=== PATIENT | male | born 1955 | race Caucasian/White ===

== ENCOUNTER 2017-02-25 07:56 | Inpatient (IN) | payer OTHER ==
[~2017-02-25] VITALS: Ht 167.6 cm; Wt 155.1 kg
[~2017-02-25 07:56] MED LIST: A + D FIRST A42.5 GM TP; ALDACTONE25 MG PO; ANASEPT TP; BUMETANIDE0.25 MG/1 PO; BUMEX; CELEXA20 MG PO; COL-RITE50 MG PO; COREG12.5 MG PO; COUMADIN 1MG TAB1 M1 PO; COUMADIN 5 MG TA5 M1 PO; COZAAR 50 MG TA50 M2 PO; CRESTOR10 MG PO; D-20002000 UNIT PO; DIOVAN 80 MG TA80 M1 PO; DOXYCYCLINE 10100 MG PO; FEOSOL325 M1 PO; HYDROXYZINE HCL25 M1 PO; KEFLEX500 MG PO; LASIX 80 MG TAB80 MG PO; LEVEMIR SUBQ; LEVOTHYROXINE0.05 MG PO; MENTAX1 TUBE TP; MINOCIN100 MG PO; MIRALAX17 GM PO; NOVOLOG100 UNIT/1 SUBQ; NYATA15 GM TP; OMEPRAZOLE20 M2 PO; PERCOCET 10-321 EACH PO; PERCOCET PO; POTASSIUM20 PO; PREDNISONE 20 M20 MG PO; SANTYL OINTMENT30 G1 TP; TRIAMCINOLONE A80 G2 TOP; XALATAN2.5 ML OPHTHALMIC; [UNRECOGNIZED DRUG - OTHER] TP
[2017-02-25 08:06] VITALS: BP 112/71
[2017-02-25 08:30] LABS: ABSOLUTE EOSINOPHILS 0.1 thou/uL (0.0-0.7); ABSOLUTE LYMPHOCYTES 1.2 thou/uL (0.8-5.3); ABSOLUTE MONOCYTES 0.6 thou/uL (0.0-1.2); ABSOLUTE NEUTROPHILS 5.8 thou/uL (1.6-8.1); BASOPHILS 0.2 %; EOSINOPHILS 1.7 %; HEMATOCRIT 38.2 % (42.0-52.0); LYMPHOCYTES 15.7 %; MCHC 31.5 g/dL (28.0-37.0); MCV 79.6 fL (80.0-100.0); MONOCYTES 7.7 %; MPV 8.5 fl. (7.2-11.1); NUCLEATED RBCS 0 /100WBC; PLATELET COUNT* 257 thou/uL (150-400); POLYS 74.7 %; WBC 7.8 thou/uL (4.0-11.0)
[2017-02-25 08:42] LABS: INR 1.5; PROTIME 14.4 Seconds (9.20-11.50)
[2017-02-25 08:44] LABS: ANION GAP 8 mmol/L (7-16); BUN 62 mg/dL (7-18); CALCIUM 8.6 mg/dL (8.5-10.1); CHLORIDE 99 mmol/L (98-107); CO2 27 mmol/L (21-32); CREATININE 1.9 mg/dL (0.6-1.3); GLUCOSE 292 mg/dL (70-99); POTASSIUM 4.2 mmol/L (3.5-5.1); SODIUM 134 mmol/L (136-145)
[2017-02-25 08:55] LABS: ALBUMIN 2.4 g/dL (3.4-5.0); ALKALINE PHOSPHATASE 418 U/L (46-116); CK-MB MASS 4.6 ng/mL (<0.5-3.6); LIPASE 143 U/L (73-393); MAGNESIUM 1.5 mg/dL (1.8-2.4); NT-PRO BRAIN NAT PEPTIDE 9094 pg/mL (<300); SGOT 25 U/L (15-37); SGPT 22 U/L (30-65); TOTAL PROTEIN 7.6 g/dL (6.4-8.2); TROPONIN-I LEVEL <0.06 ng/mL (<0.06)
[2017-02-25 09:04] LABS: ANISOCYTOSIS 2+; PLATELET ESTIMATE ADEQUATE; POLYCHROMASIA 1+
[2017-02-25] MEDS ORDERED: VICTOZA0.6 MG/0.1 SUBQ (09:44)
--- NOTE | 2017-02-25 11:29 | EKG ---
[place] [address] ELECTROCARDIOGRAM REPORT Name: PAT JONES Room: [facility]#: [id number] Admission: 02/25/17 Attend Phys: Discharge: Date of : 53 Report #: [id number] THIS REPORT FOR: //name// [facility] ED Test Date: 2017-02-25 Test Time: 08:09:59 Pat Name: PAT JONES Department: Room: Gender: M Deckhand: Opal HARVEY : 1955 Requested By: Aditya Loaiza Order Number: [id number] MD: Kailash Osborne Measurements Intervals [place] Rate: 80 P: [place]: QRS: 6 QRSD: 117 T: 61 QT: 435 QTc: 502 Interpretive Statements Atrial fibrillation Nonspecific intraventricular conduction delay Low voltage, extremity leads nonspecific st changes Compared to ECG 03/01/2016 00:46:14 Prolonged QT interval no longer present Electronically Signed On 02-25-2017 11:29:25 SEWING MACHINE OPERATOR PLASTIC ZIPPER by Kailash Osborne [email or web address] <ELECTRONICALLY SIGNED> By: Kailash Osborne MD, [facility] 02/25/17 1129 8 8 Kailash Osborne MD, [facility] /EPI
--- NOTE | 2017-02-25 16:38 | EKG ---
[place] [address] ELECTROCARDIOGRAM REPORT Name: PAT JONES Room: [place] [address] ADM IN .R.#: [id number] Admission: 02/25/17 Attend Phys: Marino Vargas MD Discharge: Date of : 53 Report #: [id number] THIS REPORT FOR: //name// [facility] ED Test Date: 2017-02-25 Test Time: 11:10:07 Pat Name: PAT JONES Department: Room: [facility] Gender: M Brazing Machine Operator: Opal HARVEY : 1955 Requested By: Aditya Loaiza Order Number: [id number] MD: Otf Waters Measurements Intervals [place] Rate: 103 P: MD: QRS: 33 QRSD: 109 T: -5 QT: 375 QTc: 491 Interpretive Statements Atrial fibrillation Lateral infarct, acute (LAD), possible Compared to ECG 02/25/2017 08:09:59 Myocardial infarct finding now present Intraventricular conduction delay no longer present ST (T wave) deviation no longer present Electronically Signed On 02-25-2017 16:37:50 COUPON REDEMPTION CLERK by Otf Waters [email or web address] <ELECTRONICALLY SIGNED> By: Otf Waters MD, FACC 02/25/17 1637 1110 1110 Otf Waters MD, FAC /EPI
[2017-02-25 17:04] LABS: URINE BILIRUBIN NEGATIVE (Negative); URINE BLOOD TRACE (Negative); URINE CLARITY CLEAR; URINE COLOR YELLOW; URINE GLUCOSE-RANDOM 1+ (Negative); URINE KETONES TRACE (Negative); URINE LEUKOCYTES-REFLEX TRACE (Negative); URINE NITRITE-REFLEX NEGATIVE (Negative); URINE PROTEIN 2+ (Negative)
[2017-02-25 17:13] LABS: AMP/METHAMP Negative (Negative); BARBITURATES Negative (Negative); BENZODIAZEPINES Negative (Negative); COCAINE Negative (Negative); METHADONE Negative (Negative); OPIATES Negative (Negative); PCP Negative (Negative); THC Negative (Negative)
[2017-02-25 17:23] LABS: BACTERIA-REFLEX 1-9 Few /HPF (None Seen); HYALINE CASTS 4-10 Moderate /LPF (None Seen); URINE WBC-REFLEX 6-15 Few /HPF (0-5)
[2017-02-25 17:24] LABS: CRYSTALS None Seen /LPF (None Seen); MUCUS None Seen strn/LPF (None Seen); SQUAMOUS 0-3 Few /LPF (0-3); URINE RBC 0-2 Rare /HPF (0-2); WBC CLUMPS Few (None Seen)
[2017-02-25 17:25] VITALS: BP 130/89
[2017-02-25 17:50] VITALS: BP 130/89
[2017-02-25] MEDS ORDERED: DOXYCYCLINE 10100 MG PO (18:15)
[2017-02-25] MEDS ORDERED: MUCINEX1200 MG PO (18:17)
[2017-02-25] MEDS ORDERED: ALDACTONE25 MG PO (18:17)
[2017-02-25] MEDS ORDERED: IRON325 PO (18:17)
[2017-02-25] MEDS ORDERED: COLACE100 MG PO (18:18)
[2017-02-25] MEDS ORDERED: MAGOX 400400 MG PO (18:18)
[2017-02-25] MEDS ORDERED: FISH OIL 1,0001 EAC1 PO (18:19)
[2017-02-25] MEDS ORDERED: FOLIC ACID1 MG PO (18:19)
--- NOTE | 2017-02-25 19:00 | NUR ---
PT ARRIVED TO ROOM 1715, ORIENTED TO ROOM AND STAFF. PT IS ANXIOUS, A/O X4, HAS WOUNDS TO CHEST, ARMS AND REPORTS WOUNDS TO RIGHT LE [facility] DID NOT UNWRAP THE WOUNDS TO ASSES, PT STATES THEY CHANGE THE DRESSINGS DAILY. WILL CONSULT WOUND CARE. PT IS HARD TO ASSES, REQUIRES EXTRA TIME, MAX ASSIST, VSS, ACCU CHECK, REVIEWED HOME MEDS WITH PT. ADMISSION HX AND ASSESMENT DONE. PT VOMITING AT APPROX 1830, ZOFRAN GIVEN. REVIEWED PLAN OF CARE WITH PT. FALL PRECATUIONS IN PLACE, TEA LIGHT IN REACH. WILL CONTINUE TO MONITOR.
[2017-02-26] VITALS (14 sets, daily range): BP systolic 107–155; BP diastolic 72–101
[2017-02-26 01:09] LABS: ABSOLUTE BASOPHILS 0.1 thou/uL (0.0-0.2); ABSOLUTE LYMPHOCYTES 1.1 thou/uL (0.8-5.3); ABSOLUTE MONOCYTES 0.7 thou/uL (0.0-1.2); ABSOLUTE NEUTROPHILS 7.1 thou/uL (1.6-8.1); BASOPHILS 1.2 %; EOSINOPHILS 0.5 %; HEMATOCRIT 39.2 % (42.0-52.0); HEMOGLOBIN 12.1 gm/dL (14.0-18.0); LYMPHOCYTES 12.3 %; MCH 24.5 pg (26.0-34.0); MCHC 30.9 g/dL (28.0-37.0); MCV 79.2 fL (80.0-100.0); MONOCYTES 8.1 %; MPV 8.2 fl. (7.2-11.1); NUCLEATED RBCS 0 /100WBC; PLATELET COUNT* 270 thou/uL (150-400); POLYS 77.9 %; RBC 4.94 mil/uL (4.50-6.00); RDW-CV 21.3 % (10.5-14.5); WBC 9.1 thou/uL (4.0-11.0)
[2017-02-26 01:17] LABS: CREATININE 1.9 mg/dL (0.6-1.3); POTASSIUM 4.7 mmol/L (3.5-5.1)
[2017-02-26 01:22] LABS: INR 1.6; PROTIME 15.3 Seconds (9.20-11.50)
[2017-02-26 01:36] LABS: ANISOCYTOSIS 2+; HYPOCHROMASIA 1+; POIKILOCYTOSIS 1+
[2017-02-26 01:37] LABS: PLATELET ESTIMATE ADEQUATE
--- NOTE | 2017-02-26 07:36 | NUR ---
ASSUMED CARE OF PT AT 1930, NURSING ASSESSMENT COMPLETED AT START OF SHIFT, PT C/O RLE PAIN AT START OF SHIFT, DR. ROBERTS NOTIFIED AND NEW ORDERS RECEIVED. CRITICAL HIGH TROPONIN LEVEL RECEIVED THIS SHIFT, DR. KAMINSKI NOTIFIED AND NEW ORDERS RECEIVED. PT NPO FOR CARDIOLOGY CONSULT. Q2H TURNS COMPLETED, REFUSED FOR THIS NURSE TO REMOVE SLEEVES FROM BLE AND UNABLE TO TAKE PICTURES FOR PT CHART. CALL LIGHT REMAINS WITHIN REACH. HEPARIN DRIP INFUSING AT 12 ML/HR.
--- NOTE | 2017-02-26 08:30 | NUR ---
ASSUMED CARE OF PT AT 0730. PT LYING IN BED, CYANOSIS NOTED TO LIPS. 02 SAT IN THE 70'S ON 2L NC. PT OXYGEN INCREASED TO 5L NC SAT 93%. PT DENIES ANY SHORTNESS OF BREATH. PT A&0X4, IRRITABLE AND AGITATED, STATING HE JUST WANTS TO BE LEFT ALONE AND GIVEN FOOD. PT NPO AT THIS TIME FOR CARDIOLOGY CONSULT. PT TRACING AFIB ON THE HUMAN RESOURCES RECEPTIONIST. RATE IN THE 110'S. PT IN CONTACT ISOLATION FOR HISTORY MRSA. PT VOIDS PER URINAL. RIGHT BKA AND LEFT AKA NOTED. PT REFUSES TO LET NURSING TAKE DRESSING AND BANDAGE OFF OF RIGHT BKA. EDUCATION GIVEN. PLAN IS TO LET PT REST AND ATTEMPT AGAIN THIS AFTERNOON. PT TROPONINS ELEVATED >200. HEPARIN GTT INFUSING AT THIS TIME AT 12 ML/HR. AWAITING RELEASE OF INFORMATION CLERK. SCABS NOTED TO PT CHEST. RASH NOTED TO RIGHT BUTTOCKS. REFER TO PICTURES IN CHART UNDER PROGRESS NOTES. AWAITING BARIATRIC BED DELIVERY AT THIS TIME. PT STATES HE HAS DULL PAIN TO HIS CHEST, MUCH BETTER THAN YESTERDAY AND DILAUDID GIVEN THIS AM HELPED WITH PAIN. PLAN FOR PT IS CARDIOLOGY CONSULT, MONITOR TROPONINS AND OXYGENATION AND PAIN MGMT, AM ASSESSMENT CHARTED. MEDICATIONS PER APR. PT REPOSITIONED EVERY 2 HOURS FOR COMFORT. HOURLY ROUNDING OBSERVED. BED IN LOW POSITION. BED ALARM IN PLACE. FALL PRECAUTIONS IN PLACE. CALL LIGHT WITHIN REACH. WILL CONTINUE PLAN OF CARE.
--- NOTE | 2017-02-26 11:43 | NUR ---
CARDIOLOGY HERE TO SEE PT. PLAN IS TO TREAT MEDICALLY AND NOT CATH PT IS NOT A GOOD CANDIDATE. ORDERS RECEIVED FOR ECHO AND IV DIGOXIN PER DR HOPSON. REFER TO EMAR. HEMOPTYSIS NOTED. IV HEPARIN DISCONTINUED. DR MCLAUGHLIN HERE TO SEE PT. ORDERS RECEIVED FOR STAT CXR, STAT BNP, LACTIC AND ABG'S. AWAITING RESULTS AT THIS TIME. BLOOD CULTURES ALSO ORDERED. PULMONARY CONSULT IN PLACE FOR HEMOPTYSIS AND RESPIRATORY FAILURE. INFECTIOUS DISEASE CONSULT IN PLACE FOR ANTIBIOTICS. PT CURRENTLY ON 8L NC SAT 95%. PT CONTINUES TO DENY ANY SHORTNESS OF BREATH. WILL CONTINUE TO MONITOR CLOSELY.
[2017-02-26 12:21] LABS: HCO3 22.9 mmol/L (22.0-26.0); PCO2 39.7 mmHg (35.0-45.0); pH 7.379 (7.340-7.450)
[2017-02-26 12:22] LABS: PO2 53.4 mmHg (75.0-100.0)
--- NOTE | 2017-02-26 14:39 | NUR ---
ORDER RECEIVED FOR MRSA SWAB. MRSA OBTAINED AND SENT TO LAB. AWAITING RESULTS. ABG'S, LACTIC AND BNP RESULTS BACK. REFER TO EMAR. RESULTS GIVEN TO DR MCLAUGHLIN. ORDERS RECEIVED FOR PT TO TRANSFER TO ICU BED 8. REPORT CALLED TO DAYRON BISWAS. RT PLACED BIPAP ON PT AND PT REFUSED TO KEEP ON. EDUCATION GIVEN. PT TRANSFERRED TO ICU WITH ALL BELONGINGS AND CHART VIA BARIATRIC BED.
--- NOTE | 2017-02-26 15:30 | NUR ---
Pt out of room when CM went to assess, will f/u later
--- NOTE | 2017-02-26 15:45 | NUR ---
1435 PATIENT RECEIVED PER BED FROM TELEMETRY. SEE ASSESSMENT. PT ON 6LPM HIGH FLOW CANNULA. LIANG CATHETER PLACED PER ORDER DR MCLAUGHLIN. RIGHT AKA STUMP WOUND DRESSING REMOVED AND PHOTOGRAPHED AND VIEWED BY IJEOMA. SECOND IV PLACED. PT IS CHRONIC ATRIAL FIB. HAS NEUROPATHY BUT DENIES CHEST PAIN.
--- NOTE | 2017-02-26 16:17 | 2DMMODE ---
[place] [address] 2 D/M-MODE ECHOCARDIOGRAM Name: PAT JONES Room: [address] IN [facility]#: [id number] Admission: 02/25/17 Attend Phys: Marino Vargas, Discharge: Date of : 53 Date of Service: 02/26/17 1617 Report #: [id number] THIS REPORT FOR: //name// APPROVED REPORT Study performed: 02/26/2017 12:30:33 EXAM: Comprehensive 2D, Doppler, and color-flow Echocardiogram Patient Location: In-Patient Room #: 214 Status: routine BSA: 2.51 BP: 111/73 mmHg Other Information Study Quality: Technically Limited Technically limited study due to uncooperative patient, body habitus, inability to position patient. Indications Chest Pain 2D Dimensions LVEF(%): 22.80 (>50%) IVSd: 18.28 (7-11mm) LVOT Diam: 20.15 (18-24mm) LVDd: 57.66 mm PWd: 14.36 (7-11mm) Ascending Ao: 34.89 (22-36mm) LVDs: 51.54 (25-40mm) Aortic Root: 32.92 mm Winter's LVEF: 22.80 % Pulmonary Valve PV Peak James.: 0.70 m/s PV Peak Gr.: 1.99 mmHg Tricuspid Valve TR Peak Gr.: 13.00 mmHg Left Ventricle Left ventricle is moderately dilated. Mild to moderate concentric left ventricular hypertrophy. Left ventricular ejection fraction is severely decreased. LVEF is 10-15%. Right Ventricle Right ventricle [place] [address] 2 D/M-MODE ECHOCARDIOGRAM Name: ROBERTPAT JULIO CÉSAR Room: [address] IN ..#: [id number] Admission: 02/25/17 Attend Phys: Marino Vargas, Discharge: Date of : 53 Date of Service: 02/26/171616 Report #: [id number] Atria Left atrium is moderately dilated. Aortic Valve Mild aortic valve sclerosis. Mitral Valve There is mitral annular calcification. <Conclusion> Left ventricle is moderately dilated. Mild to moderate concentric left ventricular hypertrophy. Left ventricular ejection fraction is severely decreased. LVEF is 10-15%. Mild aortic valve sclerosis. There is mitral annular calcification. Right ventricle is moderately dilated. Left atrium is moderately dilated. <ELECTRONICALLY SIGNED> By: Otf Waters MD, [facility] 02/26/171616 16 1617 Otf Waters MD, FACC /INF
--- NOTE | 2017-02-26 16:36 | EKG ---
[place] [address] ELECTROCARDIOGRAM REPORT Name: PAT JONES Room: [address] ADM IN M.R.#: [id number] Admission: 02/25/17 Attend Phys: Marino Vargas MD Discharge: Date of : 53 Report #: [id number] THIS REPORT FOR: //name// [facility] Test Date: 2017-02-25 Test Time: 21:09:43 Pat Name: PAT JONES Department: Room: [facility] Gender: M Luggage Attendant: MEGAN : 1955 Requested By: Marino Vargas Order Number: [id number] Daysi MD: Otf Waters Measurements Intervals [place] Rate: 111 P: SC: QRS: 147 QRSD: 103 T: -23 QT: 351 QTc: 477 Interpretive Statements Atrial fibrillation Ventricular premature complex Anterior infarct, old Borderline ST depression, anterolateral leads Baseline wander in lead(s) V1 Compared to ECG 02/25/2017 11:10:07 Ventricular premature complex(es) now present ST (T wave) deviation now present Myocardial infarct finding still present Electronically Signed On 02-26-2017 16:36:22 MANUFACTURER'S SERVICE REPRESENTATIVE by Otf Waters [email or web address] <ELECTRONICALLY SIGNED> By: Otf Waters MD, FACC 02/26/17 1636 08 08 Otf Waters MD, [facility] /EPI
--- NOTE | 2017-02-26 16:37 | EKG ---
[place] [address] ELECTROCARDIOGRAM REPORT Name: PAT JONES Room: [address] ADM IN M.R.#: [id number] Admission: 02/25/17 Attend Phys: Marino Vargas MD Discharge: Date of : 53 Report #: [id number] THIS REPORT FOR: //name// [facility] Test Date: 2017-02-26 Test Time: 08:31:24 Pat Name: PAT JONES Department: Room: [facility] Gender: M Commercial Real Estate Associate: : 1955 Requested By: Marino Vargas Order Number: [id number] Reading MD: Otf Waters Measurements Intervals [place] Rate: 115 P: [place]: QRS: 185 QRSD: 100 T: 34 QT: 352 QTc: 487 Interpretive Statements Atrial fibrillation Anterior infarct, old Borderline ST elevation, lateral leads Baseline wander in lead(s) II,III,aVF,V1,V3,V4,V5,V6 Compared to ECG 02/25/2017 11:10:07 ST (T wave) deviation now present Myocardial infarct finding still present Electronically Signed On 02-26-2017 16:37:31 LEAD SHOP OPERATOR by Otf Waters [email or web address] <ELECTRONICALLY SIGNED> By: Otf Waters MD, FACC 02/26/17 1637 0 0 Otf Waters MD, FAC /EPI
--- NOTE | 2017-02-26 17:20 | CON ---
[address] [address] CONSULTATION Name: PAT JONES Room: [address] ADM IN M.R.#: [id number] Admission: 02/25/17 Attend Phys: Marino Vargas MD Discharge: Date of : 53 Report #: [id number] THIS REPORT FOR: //name// CC: Marino Vargas FAM unknown [facility] DATE OF SERVICE: 02/25/2017 TYPE OF REPORT: Cardiology consultation. HISTORY OF PRESENT ILLNESS: The patient is a 61-year-old white male who I was asked to see in the hospital today after he complained of chest pain. The patient has had several hospitalizations here at [facility] in the past. However, he is primarily cared for at the [facility]. He has had previous right jvozg-jra-ksew amputation as well as a left pglki-qar-chld amputation apparently because of an accident in the past. He denies a history of PAD. He does have diabetes and apparently at one point had an ulcer on his foot that would not heal. He has a history of chronic edema. Echocardiogram a year ago showed ejection fraction of only 25% with dilated right ventricle. The patient states he has been diagnosed with a cardiomyopathy in the past. He is not very active because of previous bilateral amputations as well as obesity. He is 5 feet 8 inches and weighs 230 pounds. He was last admitted here to [facility] in February 2016 with congestive heart failure. He does have a history of atrial fibrillation. The patient states he was admitted about a month ago to the [facility] with congestive heart failure. He was doing well to this morning. He bent over to rock picker an object. He then felt a sharp pain in his chest and became diaphoretic. He called an ambulance. He was brought here to [facility]. I was asked to see him for further evaluation and treatment. He denied the pain radiating to his arm or jaw. No associated shortness of breath or nausea. He had no belch with the episode. He has had no recent blood in the stool. He denies any significant fever or cough. PAST MEDICAL HISTORY: Otherwise significant for diabetes. He has a history of previous amputation. MEDICATIONS: On admission included insulin, warfarin, Crestor, Bumex, Celexa, carvedilol, potassium and Victoza. ALLERGIES: He has intolerance to LISINOPRIL, MORPHINE and SULFA. FAMILY HISTORY: Negative for heart disease. SOCIAL HISTORY: He is . He and his live in [place]. 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 No smoking[place] [address] CONSULTATION Name: PAT JONES Room: [address] IN M.R.#: [id number] Admission: 02/25/17 Attend Phys: Marino Vargas MD Discharge: Date of : 53 Report #: [id number] REVIEW OF SYSTEMS: He states he had a recent upper endoscopy that showed Olsen's esophagus. He has had a recent colonoscopy, showed polyps. No history of stroke. He does have a history of sleep apnea. No history of liver disease. He has had a history of chronic kidney disease and chronic atrial fibrillation. No stroke. PHYSICAL EXAMINATION: GENERAL: Revealed a large middle-aged male, appeared in no acute distress. VITAL SIGNS: He had a blood pressure 120/80, pulse is 80 and irregular. He is afebrile. HEENT: He is anicteric. Conjunctivae pink. Mucous members appear moist. NECK: Veins difficult to assess. CHEST: Revealed rales in bases. CARDIAC: Irregular rhythm. No significant murmur. ABDOMEN: Obese, soft and nontender. NEUROLOGICAL: Nonfocal. RADIOLOGICAL DATA: His ECG showed atrial fibrillation with nonspecific ST and T-wave changes. Workup in the Emergency Room today, he had a portable chest x-ray that showed cardiomegaly, pulmonary edema, small left effusion. CT scan of the chest without contrast revealed the following: Small left effusion, atelectasis, coronary calcifications and low probability for pulmonary embolus. No aneurysm of the aorta. LABORATORY DATA: His lab work today: Sodium 134, creatinine 1.9 and glucose of 292. Liver function studies: Alkaline phosphatase is 418 and albumin 2.4. Troponin 0.31. BNP 9094. INR 1.5. White blood cell count 7.8 and hemoglobin is 12.0. IMPRESSION AND RECOMMENDATIONS: 1. Atrial fibrillation. Rate controlled with beta-kashif. We will continue anticoagulation, maintain an INR of 2-3. 2. Dilated cardiomyopathy. The patient is on Bumex adrenergic receptor binder and beta kashif. I would not recommend Aldactone because of chronic kidney disease. 3. Chest pain. Atypical for angina. No evidence of acute myocardial infarction. Recommend a conservative approach. I would not recommend stress testing nor cardiac catheterization. 4. Sleep apnea. 5. Obesity. 6. Previous bilateral amputations. [address] [address] CONSULTATION Name: PAT JONES Room: 008-[facility] IN M.R.#: [id number] Admission: 02/25/17 Attend Phys: Marino Vargas MD Discharge: Date of : 53 Report #: [id number] 7. History of Olsen's esophagus. 8. Chronic kidney disease. <ELECTRONICALLY SIGNED> By: Kailash Osborne MD, FACC 02/26/17 1720 1535 [id number] Osborne MD, FACC /nt
--- NOTE | 2017-02-26 17:29 | NUR ---
PATIENT MOVED TO ICU THIS AFTERNOON FOR INCREASED OXYGEN REQUIREMENTS. REMAIN IN ATRIAL FIB. ON 6LPM HIGH FLOW. DIURESING. LEG WOUND NOTED.MULTIPLE VISITORS. ISOLATION MAINTAINED
--- NOTE | 2017-02-26 22:13 | NUR ---
PT CONTINUES TO REMOVE OXYGEN 6L HIGHFLO NC. PLACED HOME CPAP ON PT. PT BEGAN TO DESAT TO 79. PT REFUSES TO KEEP ANY OXYGEN ON. PT STATED HE IS HIS OWN BIPAP AND DOESN'T NEED ONE. REPLACED CPAP ON PT.
--- NOTE | 2017-02-26 22:18 | NUR ---
PT REMOVED CPAP AGAIN. PT GIVEN THE CHOICE OF NC OR CPAP. PT CHOSE CPAP. CPAP REPLACED.
--- NOTE | 2017-02-26 22:34 | NUR ---
PT REMOVED CPAP AGAIN. PLACED PT ON 6L HIGHFLO. EXPLAINED TO PT THAT REFUSING TO WEAR OXYGEN IS CURRENTLY MAKING HIS HEART WORK HARDER. PT STATED HE DOES NOT CARE.
[2017-02-27] VITALS: BP 113/79
--- NOTE | 2017-02-27 00:13 | NUR ---
PT CONTINUES TO REMOVE OXYGEN. PT STATED HE DOES NOT WANT TO WEAR OXYGEN AND THAT HE DOES NOT WEAR IT AT HOME. I REPLACED THE OXYGEN ON PT. PT SEEMS TO BE CONFUSED DURING THE EVENING. PT MAKES STATEMENTS ABOUT" PICKING UP PLANES FROM OUT IN THE SEA" AND "THAT HE HAS TO TAKE A FACE MASK OFF TO GET A DRINK OF WATER!" PT WAS WEARING A NC AT THAT TIME. PT REFUSES TO BE TURNED.
[2017-02-27 02:00] VITALS: BP 126/82
[2017-02-27 04:01] VITALS: BP 138/51
[2017-02-27 04:33] LABS: INR 1.7; PROTIME 16.4 Seconds (9.20-11.50)
[2017-02-27 04:38] LABS: HEMATOCRIT 41.2 % (42.0-52.0); HEMOGLOBIN 12.9 gm/dL (14.0-18.0); MCH 24.9 pg (26.0-34.0); MCHC 31.4 g/dL (28.0-37.0); MCV 79.3 fL (80.0-100.0); MPV 8.7 fl. (7.2-11.1); NUCLEATED RBCS 0 /100WBC; PLATELET COUNT* 216 thou/uL (150-400); RDW-CV 22.1 % (10.5-14.5); WBC 10.8 thou/uL (4.0-11.0)
[2017-02-27 04:43] LABS: ALBUMIN 2.2 g/dL (3.4-5.0); ALKALINE PHOSPHATASE 332 U/L (46-116); ANION GAP 12 mmol/L (7-16); BUN 79 mg/dL (7-18); CALCIUM 8.7 mg/dL (8.5-10.1); CHLORIDE 99 mmol/L (98-107); CO2 24 mmol/L (21-32); CREATININE 2.3 mg/dL (0.6-1.3); GLUCOSE 258 mg/dL (70-99); MAGNESIUM 1.6 mg/dL (1.8-2.4); NT-PRO BRAIN NAT PEPTIDE > 35000 pg/mL (<300); POTASSIUM 4.7 mmol/L (3.5-5.1); SGOT 166 U/L (15-37); SGPT 35 U/L (30-65); SODIUM 135 mmol/L (136-145); TOTAL PROTEIN 7.2 g/dL (6.4-8.2)
[2017-02-27 05:53] LABS: ABSOLUTE LYMPHOCYTES 0.3 thou/uL (0.8-5.3); ABSOLUTE NEUTROPHILS 10.5 thou/uL (1.6-8.1); ANISOCYTOSIS 1+; PLATELET ESTIMATE ADEQUATE; POIKILOCYTOSIS 1+; POLYCHROMASIA 1+
[2017-02-27 06:00] VITALS: BP 112/72
--- NOTE | 2017-02-27 07:47 | CON ---
[address] [address] CONSULTATION Name: PAT JONES Room: [address] ADM IN M.R.#: [id number] Admission: 02/25/17 Attend Phys: Marino Vargas MD Discharge: Date of : 53 Report #: [id number] THIS REPORT FOR: //name// CC: Marino Vargas [facility] REASON FOR CONSULTATION: Acute hypoxic respiratory failure. HISTORY OF PRESENT ILLNESS: The patient is a 61-year-old male patient who presented to the ER and admitted on 02/25/2017, which chief complaint of chest pain, radiating to his back. He was evaluated in the ER and admitted. He has history of coronary artery disease, status post stent in the past and apparently he was doing his laundry when he lift his arm, he developed chest pain. He does think he had similar episodes in the past. He has a background history of congestive heart failure and he has multiple skin lesions. He denied any cough or sputum production. He reported some nausea in the ER associated with the pain. Most of his care was through the hospital. He had a previous below-knee amputation on the right side and left above-knee amputation. He has dressing on the right lower extremity and it seems that he has some cellulitis there. He had those amputations related to accident before and he has an ulcer on the right wound area. His last ejection fraction was 25% on the last echocardiogram. He has history of obstructive sleep apnea, on CPAP therapy at home. He reported the pain is on his chest and diaphoretic. He had a V/Q scan that was low probability and a CT scan that showed signs of vascular congestion with bilateral pleural effusion. Apparently, he is not on oxygen at home other than the CPAP, but this morning, he started to require more and more oxygen. Also, overnight, he was on some heparin, he coughed up some bloody sputum. PAST MEDICAL HISTORY: Diabetes mellitus, history of previous amputations on the lower extremities as mentioned above, history of ejection fraction of 25% with congestive heart failure. HOME MEDICATIONS: He is on Coumadin, Crestor, Bumex, Celexa, Coreg, potassium, and Victoza. ALLERGIES: LISINOPRIL, MORPHINE, and SULFA. FAMILY HISTORY: Noncontributory. SOCIAL HISTORY: He is . He is retired. He does not smoke or drink alcohol. REVIEW OF SYSTEMS: All systems reviewed with the patient, positive for Olsen's esophagus and he has colon polyps. The rest of [place] [address] CONSULTATION Name: PAT JONES Room: [address] IN .R.#: [id number] Admission: 02/25/17 Attend Phys: Marino Vargas MD Discharge: Date of : 53 Report #: [id number] PHYSICAL EXAMINATION: VITAL SIGNS: He is on 8 liters oxygen, O2 saturation 99%, blood pressure 155/98, breathing 20 times a minute, pulse rate of 120, temperature 36.7. HEENT: Head normocephalic, atraumatic. Pupils are equal, reactive to light. External ears look healthy and normal. CHEST: Diminished air movement bilaterally. No crackles, no wheezes. HEART: S1, S2, no murmur. ABDOMEN: Benign, soft, lax, nontender, positive bowel sounds. EXTREMITIES: He had below-knee amputation on the right side and above-knee amputation on the left side. He has dressing in the right lower extremity, but redness and evidence of cellulitis was noted, otherwise skin showing some skin lesions with scratching. PSYCHIATRIC: Mood and affect appropriate. NEUROLOGIC: Awake and alert. Moving 4 extremities spontaneously. GENERAL: He is comfortable, not in respiratory distress. LABORATORY DATA: His white blood count 7.8, hemoglobin 12, platelet 257. ABGs pending at this point. His INR upon presentation 1.6. His creatinine is 1.9 with potassium of 4.7 and sodium of 134. His BUN is 71. He had chest x-ray with repeat done today with signs of vascular congestion and basilar atelectasis. CT scan also showed the same findings. V/Q scan low probability. IMPRESSION: 1. Acute hypoxemic respiratory failure. 2. Congestive heart failure. 3. Chest pain. 4. Cellulitis of the right lower extremity in the stump area. 5. Obstructive sleep apnea. 6. Chronic anticoagulation. At this point, I would start weaning with oxygen down. However, I would like to see his ABGs first. We need to place him on CPAP or BiPAP during sleep for his obstructive sleep apnea. Continue diuretics as you are doing, monitor his kidney function, it was noted his BUN is elevated and creatinine is elevated too. I agree with the antibiotics, although I am not seeing evidence for pneumonia at this point, but that will cover the cellulitis too. We will follow along with you. Thank you for the consult. <ELECTRONICALLY SIGNED> By: Hoa Dennison MD 02/27/17 0747 1148 1405Ad Guthrie MD /nt
--- NOTE | 2017-02-27 11:28 | NUR ---
Nutrition: Pt admitted with NSTEMI. Wt: 342#. Eating 100% of CHO controlled diet. BG 200s, alb 2.2, prealb 15.8. Pt wears CPAP. Per ICU rounds, pt seems noncompliant with advice. Has a healing ulcer on coccyx, per [employer]. No nutrition interventions needed at this time. Mild risk. Will follow up per protocol.
--- NOTE | 2017-02-27 11:31 | EKG ---
[place] [address] ELECTROCARDIOGRAM REPORT Name: PAT JONES Room: [address] ADM IN M.R.#: [id number] Admission: 02/25/17 Attend Phys: Marino Vargas MD Discharge: Date of : 53 Report #: [id number] THIS REPORT FOR: //name// [facility] Test Date: 2017-02-27 Test Time: 08:41:06 Pat Name: PAT JONES Department: Room: [facility] Gender: M Operations And Intelligence Assistant: : 1955 Requested By: Kailash Osborne Order Number: [id number] Reading MD: Kailash Osborne Measurements Intervals [place] Rate: 89 P: [place]: QRS: 194 QRSD: 102 T: 47 QT: 391 QTc: 476 Interpretive Statements Atrial fibrillation Anterior infarct, old Minimal ST elevation, lateral leads Baseline wander in lead(s) V1,V3,V4,V5,V6 Compared to ECG 02/26/2017 08:31:24 rate slowed Electronically Signed On 02-27-2017 11:31:29 HUMANITIES INSTRUCTOR by Kailash Osborne [email or web address] <ELECTRONICALLY SIGNED> By: Kailash Osborne MD, [facility] 02/27/17 1131 0841 0841 Kailash Osborne MD, [facility] /EPI
[2017-02-27 15:00] VITALS: BP 117/48
--- NOTE | 2017-02-27 15:00 | NUR ---
RECIEVED REPORT FROM COUNT INCLUDES THE [facility] IN THE ICU. PT WAS BROUGHT TO 222. ASSESSMENT AND VS OBTAINED. PT REFUSES TO WEAR O2 AT THIS TIME.
--- NOTE | 2017-02-27 16:04 | CON ---
[address] [address] CONSULTATION Name: PAT JONES Room: [address] IN M.R.#: [id number] Admission: 02/25/17 Attend Phys: Marino Vargas MD Discharge: Date of : 53 Report #: [id number] THIS REPORT FOR: //name// CC: Marino Vargas [facility] DATE OF SERVICE: 02/26/2017 ATTENDING PHYSICIAN: Marino Vargas MD REASON FOR EVALUATION: Bilateral lower extremity amputations. This is complicated by draining wounds, right greater than left. HISTORY OF PRESENT ILLNESS: Chart reviewed, patient examined. This is a 61-year-old male with diabetes mellitus type 2, complicated by vasculopathies, previous right below-knee amputation, left pgfzt-sxa-ccbb amputation. He has cardiomyopathy with history of congestive heart failure who presented with complaints of chest pressure. It is determined to have a non-STEMI. Troponin is greater than 200. BNP elevated to almost 22,000. The evaluation had noted malodorous drainage associated with the right kjnis-qyb-lltf amputation site. He has been somewhat resistant to have us look. Some xrpohwou-ts-cdawfu distress at this point. It is not clear if he has fevers. He states his appetite has been fair. No significant pulmonary or GI complaints at the moment. ALLERGIES: LISINOPRIL, MORPHINE, BACTRIM, LEVAQUIN, ATORVASTATIN. CURRENT MEDICATIONS: Include vancomycin, pravastatin, warfarin, Zosyn, aspirin, citalopram, insulin, levothyroxine, doxycycline, p.r.n. analgesics, antiemetics, carvedilol, furosemide and pantoprazole. PAST MEDICAL HISTORY: As described above. History of anxiety. SOCIAL HISTORY: Nonsmoker. Intermittent marijuana use. Occasional ethanol. FAMILY HISTORY: Noncontributory. REVIEW OF SYSTEMS: As above. PHYSICAL EXAMINATION: GENERAL: Mildly agitated, in moderate distress. He is generally lucid. VITAL SIGNS: Temperature 98, pulse 126, respirations 20 and blood pressure 155/98. SKIN: Warm, dry. No rashes. HEENT: Nasal [place] [address] CONSULTATION Name: ROBERTPAT JULIO CÉSAR Room: [address]#: [id number] Admission: 02/25/17 Attend Phys: Marino Vargas MD Discharge: Date of : 53 Report #: [id number] NECK: Supple. LUNGS: Few scattered coarse breath sounds. HEART: Regular, tachycardic. No appreciated murmur. ABDOMEN: Soft. EXTREMITIES: Bilateral lower extremities have dressings in place and are clearly soiled. There is an odor to them. Right being a below-knee amputation site, the left being baznx-voh-mybf amputation site. LABORATORY AND X-RAY DATA: NT-proBNP 21,194. Chest x-ray showed cardiomegaly, left basilar atelectasis versus infiltrate and possible small effusion. CRP of 13.3. Prealbumin of 15.8. Troponin markedly elevated. Electrolytes: Sodium 134, potassium 4.2, chloride 99 and bicarb 27. BUN and creatinine of 62 and 1.9. LFTs unremarkable with exception of alk phos of 415, albumin of 2.4 and total protein 7.6. Estimated GFR of 36. CBC: White count 7.8, H and H of 12.0 and 38.2, platelets of 57. CT chest: Lungs are generally clear, no acute process. Urine culture pending. Urinalysis: 6-50 white cells, greater than 30 bacteria. ASSESSMENT: Bilateral lower extremity stump, skin and soft tissue infection. Continue empiric antimicrobial therapy, difficult to ascertain, somewhat decreased willingness to give information to grade fevers. We would assume the dressings have not been changed in quite a while. We will have Wound Care assist us ____ wounds may need debridement. Continue ongoing treatment for his myocardial infarction as well. <ELECTRONICALLY SIGNED> By: Kirill Funes MD 02/27/17 1604 [id number] Funes MD /nt
--- NOTE | 2017-02-27 17:46 | NUR ---
ASSESSMENT AND VS OBTAINED THROUGH OUT THE DAY, SEE CHARTING. 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 PT IS A VERY UNHAPPY MAN. COMPLAINS OF EVERYTHING THAT HAPPENS.
[2017-02-27 22:00] VITALS: BP 91/57
[2017-02-28] VITALS: BP 111/66
[2017-02-28 04:00] VITALS: BP 118/79
[2017-02-28 05:49] LABS: INR 2.4; PROTIME 22.7 Seconds (9.20-11.50)
[2017-02-28 08:00] VITALS: BP 111/64
[2017-02-28 12:00] VITALS: BP 90/48
--- NOTE | 2017-02-28 12:12 | NUR ---
ASSESSMENT COMPLETED REFER TO COMPUTER CHARTING. 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 PATIENT REPORTING NO PAIN, NAUSEA OR SHORTNESS OF BREATH. BED IN LOW AND LOCKED POSITION. CALL LIGHT WITHIN REACH. IV SALINE LOCKED, PATIENT ON ROOM AIR. WOUND CARE IN TO SEE PATIENT THIS AM. WILL CONTINUE TO MONITOR THIS SHIFT.
[2017-02-28 12:30] VITALS: BP 155/98
--- NOTE | 2017-02-28 12:39 | NUR ---
WOUND CARE NOTE: CONSULT RECEIVED FOR RIGHT LE WOUND ON AMPUTATION. PATIENT PRESENTS WITH A STAGE 3 PRESSURE ULCER TO THE END OF HIS RIGHT BKA STUMP. PATIENT STATES THIS IS FROM HIS PROSTHETIC AND HAS HAD IT FOR QUITE SOME TIME. PATIENT SEES A WOUND DR. AT THE [place] AND IS TO HAVE A REVISION TO THE RIGHT BKA. PATIENT WAS SEEN WITH ID PHYSICIAN. WOUND MEASURES 10X9X0.4. MOIST RED WOUND BED TO 80%, NON GRANULAR. 20% WITH YELLOW, MOIST, ADHERENT SLOUGH. GYPSY-WOUND IS RED AND DISCOLORED. CLEANSED WOUND BED WITH WOUND CLEANSER, PATTED DRY. APPLIED LOTION TO INTACT GYPSY-WOUND. APPLIED SALINE MOISTENED GAUZE TO WOUND BED. COVERED WITH ABD. SECURED WITH KERLIX AND DEBRA. WOUND APPEARS THAT IT MAY NEED SOME DEBRIDEMENT, PLANS TO GET VASCULAR SURGERY INVOLVED. PLACED THE WET TO DRY DRESSING FOR TEMPORARY COVERAGE UNTIL SEEN BY VASCULAR. EDUCATED PATIENT ON PLANS FOR POSSIBLE DEBRIDEMENT, COMMUNICATED UNDERSTANDING. EDUCATED PATIENT ON OFFLOADING OF THE STUMP SITE, COMMUNICATED UNDERSTANDING AND ALLOWED THE WOUND RN TO PLACE A PILLOW UNDER HIS LEG TO OFFLOAD. EDUCATED PATIENT ON IMPORTANCE OF NUTRITION FOR WOUND HEALING, COMMUNICATED UNDERSTANDING. ALSO CHECKED SACROCOCCYGEAL REGION. THERE IS A HEALED AREA TO THE RIGHT BUTTOCK, AND SOME MACERATION. OTHERWISE THIS AREA IS INTACT. NO PRESSURE ULCER NOTED TO THE SACROCOCCYGEAL REGION. RECOMMEND OFFLOAD WOUND SITE ENCOURGAGE GOOD NUTRITION AND HYDRATION TIGHT BLOOD GLUCOSE CONTROL POSSIBLE DEBRIDEMENT
[2017-02-28 12:46] LABS: HEMOGLOBIN 12.1 gm/dL (14.0-18.0); MCH 24.6 pg (26.0-34.0); MCHC 30.9 g/dL (28.0-37.0); MCV 79.5 fL (80.0-100.0); MPV 8.3 fl. (7.2-11.1); NUCLEATED RBCS 0 /100WBC; PLATELET COUNT* 227 thou/uL (150-400); RDW-CV 21.9 % (10.5-14.5); WBC 11.5 thou/uL (4.0-11.0)
[2017-02-28 12:59] LABS: CALCIUM 8.4 mg/dL (8.5-10.1); CREATININE 2.3 mg/dL (0.6-1.3); POTASSIUM 4.4 mmol/L (3.5-5.1); TOTAL BILIRUBIN 1.1 mg/dL (<0.1-1.0); TOTAL PROTEIN 6.4 g/dL (6.4-8.2)
[2017-02-28 13:00] LABS: ABSOLUTE LYMPHOCYTES 0.8 thou/uL (0.8-5.3); ABSOLUTE MONOCYTES 0.6 thou/uL (0.0-1.2); ABSOLUTE NEUTROPHILS 10.1 thou/uL (1.6-8.1); ANISOCYTOSIS 1+; HYPOCHROMASIA 1+; PLATELET ESTIMATE ADEQUATE; POLYCHROMASIA 1+
--- NOTE | 2017-02-28 15:57 | NUR ---
CM ASSESSMENT: Pt is A&O. Resides at home with his and extended family. Pt is independent with ADLs. Pt uses a wc for mobility and able to preform own transfers. Pt also has a roll in shower. Wears a cpap at night, provided by the PA. Current with [facility] for stump wound, wants to resume at [facility]. Hx of SNF at a [facility] and a facility in [place]. Pt's goal is to return home once medically stable. Pt stated that he will need a stretcher transport to get home. Following.
[2017-02-28 17:30] VITALS: BP 92/57
--- NOTE | 2017-02-28 19:58 | NUR ---
ASSUMED PT CARE AT APPROX 1400, THIS RN REVIEWED AND AGRESS WITH THE CHARTING AND NOTES OF DAYRON URRUTIA. PT REMAINS ON BARIACTRIC BED, IS REFUSING TO TURN, HE STATES THAT HE IS TURNING HIMSELF IN THE BED. PTS BP LOW THIS EVENING, BUT STABLE, HELD PTS COREG, ALL OTHER VSS, PT AFIB ON THE MONITOR. PT EDUCATED ON MEDS THIS EVENING, IS HOPING TO GO HOME TOMORROW. FALL PRECATUIONS MAINTAINED. CALL LIGHT IN REACH. REPORT GIVEN TO DAYRON WEST.
[2017-03-01] VITALS (7 sets, daily range): BP systolic 83–155; BP diastolic 51–98
[2017-03-01 05:32] LABS: ABSOLUTE EOSINOPHILS 0.1 thou/uL (0.0-0.7); ABSOLUTE MONOCYTES 0.7 thou/uL (0.0-1.2); ABSOLUTE NEUTROPHILS 8.1 thou/uL (1.6-8.1); BASOPHILS 0.3 %; EOSINOPHILS 1.4 %; HEMATOCRIT 38.6 % (42.0-52.0); HEMOGLOBIN 12.2 gm/dL (14.0-18.0); LYMPHOCYTES 10.4 %; MCH 25.2 pg (26.0-34.0); MCHC 31.5 g/dL (28.0-37.0); MCV 80.1 fL (80.0-100.0); MONOCYTES 7.3 %; MPV 8.5 fl. (7.2-11.1); NUCLEATED RBCS 0 /100WBC; PLATELET COUNT* 220 thou/uL (150-400); POLYS 80.6 %; RBC 4.82 mil/uL (4.50-6.00); RDW-CV 22.2 % (10.5-14.5)
[2017-03-01 05:43] LABS: PREALBUMIN 15.5 mg/dL (18.0-35.7)
[2017-03-01 05:45] LABS: INR 2.8; PROTIME 27.3 Seconds (9.20-11.50)
--- NOTE | 2017-03-01 05:50 | NUR ---
PATIENT ALERT AND ORIENTED TIMES FOUR. CAN BE VERY PLEASANT. MULTIPLE ABRASION AREAS ON ARMS. IV PATENT. LIANG CATH IN PLACE. DRESSING TO PU ON STUMP. MINOR COMPLAINTS OF PAIN IN HIS THROAT. WOULD LIKE SOME THROAT LOZENGES. USES TRAPEZE ON BED FOR BED MOBILITY. HOURLY ROUNDING AND NURSING ASSESSMENT COMPLETED DOCUMENTED.
[2017-03-01 06:10] LABS: ALBUMIN 2.1 g/dL (3.4-5.0); CALCIUM 8.5 mg/dL (8.5-10.1); CREATININE 2.7 mg/dL (0.6-1.3); POTASSIUM 4.1 mmol/L (3.5-5.1); TOTAL PROTEIN 6.8 g/dL (6.4-8.2)
[2017-03-01 06:37] LABS: ANISOCYTOSIS 2+; PLATELET ESTIMATE ADEQUATE
--- NOTE | 2017-03-01 11:32 | NUR ---
ASSUMED PT CARE AT 0730, FULL ASSESMENT DONE CHARTED. PT A/O X4, IS ANXIOUS AT TIME, HAS PRODUCTIVE COUGH, SATS 97% ON RA. ALL OTHER VSS, AFIB ON THE MONITOR. PT HOPING TO GO HOME TODAY, DISCHARGE PLANNING IN PLACE. PT C/O PAIN IN BACK, MEDICATION GIVEN.FALL PRECATUIONS IN PLACE, CALL LIGHT IN REACH. WILL CONTINUE WITH PLAN OF CARE.
--- NOTE | 2017-03-01 12:32 | NUR ---
Pt discharging to home today. Faxed resumption orders to [facility].
[2017-03-01] MEDS ORDERED: BAYER CHEWABLE81 MG PO (14:34)
[2017-03-01] MEDS ORDERED: COUMADIN7.5 MG PO (15:31)
[2017-03-01] MEDS ORDERED: OXYCODONE HCL 55 MG PO (15:32)
== END 2017-03-01 16:07 | disposition home health service (06) | DRG 177 ==
LOC: M.ERS 07:56 → M.2W 11:57 → M.TBA-ER 11:57 → M.2W 17:09 → M.ICU 02-26 14:27 → M.2W 02-27 14:52
PROVIDERS: Family Medicine; Internal Medicine Cardiovascular Disease; ADMIT Internal Medicine
DX: J69.0 Pneumonitis due to inhalation of food and vomit (principal); I50.43 Acute on chronic combined systolic (congestive) and diastolic (congestive) heart failure; I21.29 ST elevation (STEMI) myocardial infarction involving other sites; J96.21 Acute and chronic respiratory failure with hypoxia; R65.10 Systemic inflammatory response syndrome (SIRS) of non-infectious origin without acute organ dysfunction; I42.0 Dilated cardiomyopathy; Z68.43 Body mass index [BMI] 50.0-59.9, adult; L03.115 Cellulitis of right lower limb; R04.2 Hemoptysis; E11.9 Type 2 diabetes mellitus without complications; I48.91 Unspecified atrial fibrillation; G47.33 Obstructive sleep apnea (adult) (pediatric); E66.01 Morbid (severe) obesity due to excess calories; Z89.512 Acquired absence of left leg below knee; Z89.511 Acquired absence of right leg below knee; Z79.899 Other long term (current) drug therapy; Z79.4 Long term (current) use of insulin; Z88.6 Allergy status to analgesic agent; Z88.1 Allergy status to other antibiotic agents; Z88.2 Allergy status to sulfonamides; Z88.8 Allergy status to other drugs, medicaments and biological substances; Z79.01 Long term (current) use of anticoagulants